=== PATIENT | female | born 1985 | race Caucasian/White ===

== ENCOUNTER 2021-03-08 15:31 | Emergency (ER) | payer MEDICAID, SELFPAY ==
[2021-03-08 15:51] VITALS: BP 103/51; PULSE 68; RESP 15; TEMP 36.5; O2SAT 98
--- NOTE | 2021-03-08 16:27 | ED.GENADUL_ITS ---
Discharge Plan Disposition Patient Disposition: HOME Condition: Stable Discharge Details Clinical Impression: Pain, rectal, Hematochezia Primary Care Provider: Yazan Herrera ED Provider: Gracie Alexandre Home Meds and New Rx's Prescriptions: New hydrocortisone acetate 25 mg suppository 25 mg ND QHS 5 Days Qty: 5 RF: 0 Discharge Instructions Instructions: Rectal Pain (ED) Additional Instructions: Please obtain a stool sample and bring it to lab for follow-up with PCP as directed. Take the suppositories as directed. Follow up with primary care provider in 3-5 days. Return to ED sooner if any worsening abdominal pain, rectal bleeding with clots, dizziness, lightheadedness, fever or concerns. Increase oral fluids. At this time your urine does not show any evidence of urinary tract infection. Referrals: Yazan Herrera [Primary Care Provider] - Discharge Data Discharge Date/Time-TO BE ENTERED AT DEPARTURE: 03/08/21 17:34 Medical Decision Making 35-year-old female since the ER with complaints of rectal pain and pressure, loose stools which has gotten worse over the last couple days. She also reports some urinary frequency and hesitancy she states that she was recently on Cipro for a UTI finished the course approximately 2 weeks ago. She denies any gross blood or dark tarry stools. She does report some soft stools. She has been trying Epson salt baths, hydrocortisone topical cream, lidocaine and Tucks wipes which has helped somewhat. Plan is to get urine sample rule out UTI, and an outpatient stool sample. Guaiac positive. No obvious external or internal hemorrhoid palpated or visualized. Urinalysis shows no evidence of urinary tract infection including leukocyte or nitrite. This time I do feel that this is irritation of the lining of the colon due to soft stools as patient describes. Will send in outpatient stool collection kit and specimen for patient to collect at home and strict follow-up with PCP. Plan is to discharge patient with hydrocortisone rectal suppositories. Differential diagnosis includes but limited to C. difficile, gastritis, internal hemorrhoid, colitis, viral or bacterial infection HPI General Mode of arrival: ambulatory . Date/Time Provider Initiated Documentation: 03/08/21 15:55 . Limitations to Documentation: no limitations . Information obtained by: patient . HPI Narrative: 35-year-old female since the ER with complaints of rectal pain and pressure, loose stools which has gotten worse over the last couple days. She also reports some urinary frequency and hesitancy she states that she was recently on Cipro for a UTI finished the course approximately 2 weeks ago. She denies any gross blood or dark tarry stools. She does report some soft stools. She has been trying Epson salt baths, hydrocortisone topical cream, lidocaine and Tucks wipes which has helped somewhat. 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 HEENT: Denies trauma, headaches, blurry vision, nasal discharge, sore throat, trouble swallowing. Chest: Denies chest pain, palpitations, irregular rhythm, hypertension. Respiratory: Denies Shortness of breath, cough, hemoptysis. GI: Denies abdominal pain, nausea, vomiting. Reports loose stools. Does have a history of constipation due to Suboxone. : Denies dysuria, hematuria, flank pain, reports urinary hesitancy and mild stress incontinence. Neuro: Denies dizziness, blurry vision, weakness, syncope, headache or facial numbness. Hematologic: Denies easy bruising, intolerance to heat or cold, hair loss. [facility] Medical History Asthma Hyperthyroidism Surgical History History of hysterectomy Social History Smoking/Tobacco Use Status: Current every day Tobacco Type: cigarettes Tobacco: How many years used: 15 Smoking risk assessment performed?: Yes Alcohol Intake: never Drug use: Daily Substance use type: marijuana Do you feel safe at home: Yes Do you feel safe in your relationship?: Yes Exam Narrative Exam Narrative: Constitutional: Alert and oriented x3. Appears stated age. Normal body habitus. Head: Normocephalic, no trauma. Eyes: Pupils PERRLA, Red reflex noted, EOM's intact. Eyelids symmetrical without lesions, discharge, or swelling. ENT: Bilateral TM's WNL, External ear normal to inspection, no mastoid TTP, swelling, or erythema, Nasal turbinates WNL, no nasal discharge. Normal dentition, Posterior pharynx WNL, no exudate. Chest: RRR, Normal S1, S2, distal pulses intact. Resp: Lungs scattered expiratory wheezes throughout all kowalski, no rales, or rhonchi. Abdomen: Soft, nondistended nontender to palpation all 4 quadrants. Rectal exam: No visible or palpated external or internal hemorrhoids, positive guaiac stool. Small amount of gross blood on digital rectal exam. Patient did have some tenderness with exam. Musculoskeletal: Normal gait, 5/5 strength to all four extremities. Skin: No suspicious rashes or lesions. Capillary refill less than 2 sec. Neurologic: Cranial nerves II-XII intact. Alert and oriented x 3. DTR's intact. Hematologic/Lymphatic: No ecchymosis, no lymphadenopathy. Course Vital Signs Vital signs: Vital Signs Temperature 36.5 C 03/08/21 15:51 Pulse 68 03/08/21 15:51 Respiratory Rate 15 03/08/21 15:51 Blood Pressure 103/51 L 03/08/21 15:51 Pulse Oximetry 98 03/08/21 15:51 Temperature 36.5 C 03/08/21 15:51 Temperature Source Temporal Artery Scan 03/08/21 15:51 Pulse 68 03/08/21 15:51 Respiratory Rate 15 03/08/21 15:51 Blood Pressure 103/51 L 03/08/21 15:51 Pulse Oximetry 98 03/08/21 15:51 Oxygen Delivery Method Room Air 03/08/21 15:51 Oxygen Flow Rate 0 03/08/21 15:51 Procedures Stool Hemoccult Procedural Steps Taken: stool placed in appropriate test area, developer placed on stool and control areas and controls appropriately positive and negative Hemoccult result: positive
[2021-03-08 16:54] LABS: Bilirubin Negative (Negative); Blood Negative (Negative); Clarity Clear (Clear); Glucose Negative (Negative); Ketones Negative (Negative); Leukocyte Esterase Negative (Negative); Nitrite Negative (Negative); Specific Gravity >= 1.030 (1.005-1.025); Urobilinogen 0.2 EU/dL (Up TO 0.2)
[2021-03-08 17:02] LABS: RBC Negative HPF (0-2)
[2021-03-08 17:03] LABS: Bacteria Moderate HPF (Negative); C & S Indicated? No/Sq. Contamination; Casts Negative LPF (Negative); Crystals Few Amorphous HPF (Negative); Epithelial Cells Many HPF (Negative); Mucus Heavy (Negative); Other Cells Negative (Negative)
[2021-03-08 17:33] VITALS: BP 115/64; PULSE 62; RESP 15; TEMP 36.7; O2SAT 98
== END 2021-03-08 17:34 | disposition home or self-care (01) ==
PROVIDERS: Emergency Provider Registered Nurse Emergency; PCP Nurse Practitioner
DX: K62.89 Other specified diseases of anus and rectum (principal); K92.1 Melena
CPT/HCPCS: 99283; 81003; 81015

== ENCOUNTER 2021-03-10 16:06 | Emergency (ER) | payer MEDICAID, SELFPAY ==
[2021-03-10 16:27] VITALS: BP 111/74; PULSE 16; RESP 16; TEMP 36.7; O2SAT 96
--- NOTE | 2021-03-10 17:07 | W.ED.GENAD ---
Discharge Plan Disposition Patient Disposition: HOME Condition: Good Discharge Details Clinical Impression: Internal bleeding hemorrhoids, Pain, rectal Primary Care Provider: Yazan Herrera ED Provider: Jessica Nunez Discharge Instructions Additional Instructions: take colace, over the counter daily 50-100 mg use preparation H generic suppositories for the next 5 days tylenol and ibuprofen for pain prunes or metameucil daily Discharge Data Discharge Date/Time-TO BE ENTERED AT DEPARTURE: 03/10/21 17:50 Medical Decision Making Patient appears well, she has an obvious fissure with small internal hemorrhoid She is stable for discharge home She is instructed to take [id number] medications as unfortunately her insurance will not cover anything prescription, she is encouraged to take Colace and [id number] hemorrhoid suppositories such Preparation H She is also instructed to use glycerin suppositories as needed and follow-up with her primary care physician Return precautions Patient expressed understanding Differential Diagnosis Differential Diagnosis: GI bleed, hemorrhoid, fissure, abscess Lab Data Lab results reviewed: Yes I reviewed the patient's lab results. HPI This 35-year-old female presents with report of rectal pain for the past several weeks. She states that she has hemorrhoids but she has frequent constipation. She denies abdominal pain, chest pain, shortness of breath, fever, blood in stool. She states she does have a history of hemorrhoids. She has tried ibuprofen for pain but no additional medication. She did not have a prescription prescribed at the her. She denies any additional complaints at this time. General Date/Time Provider Initiated Documentation: 03/10/21 16:15. Related Data Allergies Allergy/AdvReac Type Severity Reaction Status Date / Time No Known Allergies Allergy Unverified 03/10/21 16:30 General Stated Complaint: GenMedical NIC: 4 Review of Systems Narrative: Review of systems obtained times 7 aside from where indicated in HPI [facility] Medical History Asthma Hyperthyroidism Surgical History History of hysterectomy Social History Smoking/Tobacco Use Status: Current every day Tobacco Type: cigarettes Tobacco: How many years used: 15 Smoking risk assessment performed?: Yes Alcohol Intake: never Drug use: Daily Substance use type: marijuana Do you feel safe at home: Yes Do you feel safe in your relationship?: Yes Exam Const General: healthy appearing GI Other: No abdominal tenderness, normal inspection On anoscopy patient has a internal hemorrhoid and a small fissure that are not actively bleeding, no evidence of thrombosis, no evidence of abscess Skin Other: No pallor Neuro General: patient alert and patient oriented x3 Course Vital Signs Vital signs: Vital Signs Temperature 36.7 C 03/10/21 16:27 Pulse 16 L 03/10/21 16:27 Respiratory Rate 16 03/10/21 16:27 Blood Pressure 111/74 03/10/21 16:27 Pulse Oximetry 96 03/10/21 16:27 Temperature 36.7 C 03/10/21 16:27 Pulse 16 L 03/10/21 16:27 Respiratory Rate 16 03/10/21 16:27 Respiratory Effort 03/10/21 16:31 Blood Pressure 111/74 03/10/21 16:27 Blood Pressure Position Sitting 03/10/21 16:27 Pulse Oximetry 96 03/10/21 16:27 Oxygen Delivery Method Room Air 03/10/21 16:27 Oxygen Flow Rate 0 03/10/21 16:27 Pain Level 7 03/10/21 16:27
[2021-03-10 17:49] VITALS: BP 111/74; PULSE 61; RESP 16; O2SAT 96
== END 2021-03-10 17:50 | disposition home or self-care (01) ==
PROVIDERS: Emergency Provider Physician Assistant; PCP Nurse Practitioner
DX: K64.8 Other hemorrhoids (principal)
CPT/HCPCS: 99282; 99283

== ENCOUNTER 2021-03-10 16:48 | Outpatient (REF) | payer MEDICAID, SELFPAY ==
[2021-03-11 20:59] LABS: Campylobacter PCR Negative (Negative); Salmonella PCR Negative (Negative); Shiga Toxin PCR Negative (Negative); Shigella/Enteroinvasive Ecoli Negative (Negative)
== END 2021-03-10 16:49 | disposition home or self-care (01) ==
LOC: LBN 16:48
PROVIDERS: PCP Nurse Practitioner; Visit Provider Registered Nurse Emergency
DX: R19.7 Diarrhea, unspecified (principal); K62.89 Other specified diseases of anus and rectum; K62.5 Hemorrhage of anus and rectum
CPT/HCPCS: 87505; 83630; 87177; 87324

== ENCOUNTER 2022-04-19 21:47 | Emergency (ER) | payer MEDICAID, SELFPAY ==
[2022-04-19 21:55] VITALS: BP 144/103; PULSE 104; RESP 18; TEMP 36.7; O2SAT 100
[2022-04-19 22:01] VITALS: BP 143/97
--- NOTE | 2022-04-19 22:01 | W.ED.GENAD ---
Discharge Plan Disposition Patient Disposition: HOME Condition: Good Discharge Details Clinical Impression: Kidney stone on left side Primary Care Provider: Yazan Herrera ED Provider: Riley Hatfield Home Meds and New Rx's Prescriptions: New cephalexin 500 mg capsule 500 mg PO QID 4 Days Qty: 16 0RF Continued buprenorphine-naloxone 2-0.5 mg Tablet, Sublingual 1 tab SUBLINGUAL Discharge Instructions Instructions: Kidney Stones (ED) Additional Instructions: At this time you have a small 2 mm kidney stone. Thankfully it is right at the very end of its course, and should pass shortly. Please continue to take Tylenol and Motrin as needed for pain. You can take 1000 mg of Tylenol every 6 hours and 800 mg of Motrin every 6 hours. There is a very small amount of bacteria noted in your urine, however it does not appear to be an infection yet. Out of an abundance of precaution please take the antibiotic as directed to prevent infection as you passed the stone. The prescription has been sent to your pharmacy. Please use a urinary strainer to collect the stone which can then be brought to your family doctor for further analysis. If you notice any worsening of your symptoms, or any new symptoms such as vomiting, diarrhea, fever, chills, shortness of breath, chest pain, numbness, weakness, or fainting , please return immediately to the emergency department for reevaluation. Please follow up with your primary care provider as soon as possible for reassessment and reevaluation. As always, it was a pleasure participating in your medical care today. Medical Decision Making <Matias Casillas MD - Last Filed: 04/19/22 22:08> 36-year-old with recurrent UTIs. Given the flank pain the sudden onset of the discomfort believe it is important to rule out kidney stone. CT scan has been ordered. Patient will be treated Zofran IV fluids as well as Toradol. <Riley Hatfield DO - Last Filed: 04/20/22 01:45> 36-year-old with recurrent UTIs. Given the flank pain the sudden onset of the discomfort believe it is important to rule out kidney stone. CT scan has been ordered. Patient will be treated Zofran IV fluids as well as Toradol. Dr. Hatfield's documentation: Case is signed out to me by Dr. Casillas. Please refer to his HPI, physical exam, assessment and plan. At time of signout we are awaiting CT scan results and repeat urinalysis as the first urinalysis had been notably dirty. CT scan result have returned and demonstrates evidence of small 2 mm calculus. Minimal hydroureteronephrosis. Patient's pain is well controlled. If the patient's urinalysis returns on repeat UA and shows no evidence of infection then the patient will be stable for discharge and close follow-up. 1:44 AM Urinalysis has returned and shows negative leuk esterase, negative nitrites. This does not represent evidence of infection. She does have slightly elevated WBCs, but it is in the presence of RBCs. Out of an abundance of precaution we will start the patient on Keflex to prevent any infection for the last small amount of time while she is passing the stone. Recommend close follow-up with Dr. Noel. Pain is completely resolved on reassessment the patient feels well. I have extensively reviewed the treatment plan and discharge instructions with the patient. I have addressed all patient concerns at this time. The patient was made aware of what symptoms to monitor for that would warrant a return to the emergency department. Discussed the plan with the patient, they demonstrate verbal understanding and agreement with our assessment and plan at this time. The documentation in this chart was dictated using [employer] dictation software. Please excuse any dictation errors. FINDINGS: Lungs: Left lung base subpleural 3 mm nodule, image 5. Liver: The liver measures 18.7 cm in craniocaudal dimension. Gallbladder and bile ducts: No calcified stones. No ductal dilation. Pancreas: No ductal dilation. Spleen: No splenomegaly. Adrenal glands: Normal. No mass. Kidneys and ureters: Nonobstructing 2 mm right renal calculus. Mild left-sided hydroureteronephrosis. 2 mm calculus at the left ureterovesical junction projecting on the luminal aspect of the bladder. Stomach and bowel: No obstruction. No mucosal thickening. Appendix: The appendix is not identified. Intraperitoneal space: No free air. No significant fluid collection. Vasculature: Bilateral pelvic phlebolith. Lymph nodes: No enlarged lymph nodes. Urinary bladder: See Kidneys and ureters finding. Reproductive: The uterus is not identified. Bones/joints: Unremarkable. No acute fracture Soft tissues: Unremarkable. IMPRESSION: Mild left-sided hydroureteronephrosis. 2 mm calculus at the left ureterovesical junction projecting on the luminal aspect of the urinary bladder. Nonobstructing 2 mm right renal calculus. Thank you for allowing us to participate in the care of your patient. Dictated and Authenticated by: Lior Hernandez MD 04/19/2022 10:52 PM Eastern Time ([place] & [place]) HPI <Matias Casillas MD - Last Filed: 04/19/22 22:08> General Date/Time Provider Initiated Documentation: 04/19/22 21:58. HPI Narrative: 36-year-old lady presents to the emergency department with a chief complaint of left lower quadrant pain that radiates to . This pain started last evening. Since progressively getting worse recently. Associated with some nausea and vomiting. No fevers. But she does endorse some chills. She also states that she has urinary frequency. No urgency.. She feels her chest pain glass. No alleviating factors no exacerbating factors Related Data Home Medications Medication Instructions Recorded Confirmed buprenorphine 2 mg-naloxone 0.5 mg 1 tab sublingual 04/19/22 sublingual tablet cephalexin 500 mg capsule 500 mg PO QID 4 days #16 caps 04/20/22 Previous Rx's Medication Instructions Recorded cephalexin 500 mg capsule 500 mg PO QID 4 days #16 caps 04/20/22 Allergies Allergy/AdvReac Type Severity Reaction Status Date / Time No Known Allergies Allergy Unverified 04/19/22 21:58 General Stated Complaint: Urinary NIC: 3 Review of Systems <Matias Casillas MD - Last Filed: 04/19/22 22:08> Narrative: Constitutional positive for fatigue. No malaise. HEENT. No sore throat. Cardiovascular no chest pressure. No palpitations no lightheadedness Respiratory sno cough no sob GI positive nausea and vomiting. pos constiption since this morning see hpi MSK see HPI no myalgias or arthralgias Skin no rashes Neuro no headache no paresthesias Psych negative Endocrine negative hematological negative PFSH <Matias Casillas MD - Last Filed: 04/19/22 22:08> All Active Problems (Updated 04/20/22 @ 00:01 by JACQUES HACKETT) Pain, rectal (Acute) Hematochezia (Acute) Internal bleeding hemorrhoids (Acute) Medical History Asthma Hyperthyroidism Surgical History History of hysterectomy Social History Smoking/Tobacco Use Status: Current every day Tobacco Type: cigarettes Tobacco: How many years used: 15 Smoking risk assessment performed?: Yes Alcohol Intake: never Drug use: Daily Substance use type: marijuana Do you feel safe at home: Yes Do you feel safe in your relationship?: Yes Exam <Matias Casillas MD - Last Filed: 04/19/22 22:08> Narrative Exam Narrative: Awake alert [place] x3 mild discomfort, cooperative PERRLA EOMI MMM anicteric Supple neck chest Clear to auscultation bilaterally Regular rhythm and rate no murmurs Abdomen soft nondistended nontender mild discomfort left lower quadrant Back left-sided CVAT Skin no rashes Neuro grossly intact Extremities no edema Psych normal Course <Matias Casillas MD - Last Filed: 04/19/22 22:08> Vital Signs Vital signs: Vital Signs Temperature 36.7 C 04/19/22 21:55 Pulse 104 H 04/19/22 21:55 Respiratory Rate 18 04/19/22 21:55 Blood Pressure 144/103 H 04/19/22 21:55 Pulse Oximetry 100 04/19/22 21:55 Temperature 36.7 C 04/19/22 21:55 Temperature Source Oral 04/19/22 21:55 Pulse 104 H 04/19/22 21:55 Respiratory Rate 18 04/19/22 21:55 Respiratory Effort Non-Labored 04/19/22 21:59 Blood Pressure 143/97 H 04/19/22 22:01 Pulse Oximetry 100 04/19/22 21:55 Pain Level 9 04/19/22 21:55 Sign Out <Matias Casillas MD - Last Filed: 04/19/22 22:08> Sign Out Data: Sign Out Comment: 36-year-old with symptoms consistent with either UTI versus distal stone. CAT scan confirms a distal left stone. Unfortunately first UA that she gave is clean-catch. At signout was pending is a repeat UA to make sure. Urine is not infected. Patient received Toradol IM as well as p.o. Zofran feeling great deal better. Last updated by Matias Casillas MD at 04/19/22 23:32
--- NOTE | 2022-04-19 22:15 | DI.CT_ITS ---
Exam(s) CT RENAL COLIC WO EXAM: CT RENAL COLIC WO CLINICAL HISTORY: flank pain. TECHNIQUE: Imaging Protocol: Axial computed tomography images with coronal and sagittal reformatted images were created and reviewed. COMPARISON: No exams were available for comparison FINDINGS: Lack of IV contrast does limit evaluation of the abdominal pelvic organs. ABDOMEN: Lung Bases: Normal where visualized. Liver: Normal density. No measurable mass. Gallbladder and biliary tract: No radiodense calculus or biliary ductal dilation. Pancreas: Normal density, no abnormal calcifications or inflammatory process. Spleen: Normal. Kidneys: Normal size, contour and axis.There is a 3 mm nonobstructing stone in the midpole of the rig ht kidney. There is a 3 mm stone at the left UVJ projecting into the urinary bladder. There is mild left hydronephrosis. Adrenal glands: No mass is seen. Lymph nodes: Within normal limits. Abdominal Aorta: Abdominal portion non-dilated. PELVIS: Bladder:Symmetric distention, no gross wall thickening. Bowel: No obstruction or bowel wall thickening. No evidence of appendicitis. Peritoneal cavity: No ascites, collection or mesenteric inflammatory response. No free air. Reproductive organs: Within normal limits. Bones: Within normal limits. Soft Tissues: Within normal limits. IMPRESSION: 3 mm stone at the left UVJ projecting into the bladder causing mild hydronephrosis. RADIATION DOSE DELIVERED: 709.87mGy.cm Total DLP DATA REPOSITORY: All CT scans at this facility are submitted to the National Radiology Data Registry (NRDR) Dose Index Registry (DIR) with the [employer] (ACR). RADIATION OPTIMIZATION: All CT scans at this facility use at least one of these dose optimization te chniques: automated exposure control; mA and/or kV adjustment per patient size (includes targeted exa ms where dose is matched to clinical indication); or iterative reconstruction.
[2022-04-19 22:21] LABS: Clarity Clear (Clear)
[2022-04-19 22:39] LABS: Anion Gap 12.9 mmol/L (3-11); BUN 14 mg/dL (7-18); CO2 25.1 mmol/L (21.0-32.0); Calcium 9.5 mg/dL (8.5-10.1); Chloride 107 mmol/L (98-107); Glucose 103 mg/dL (74-106); Potassium 3.7 mmol/L (3.5-5.1); Sodium 145 mmol/L (136-145)
--- NOTE | 2022-04-19 22:40 | NUR.NOTE ---
Nursing Note: unable to get IV; Dr. Casillas notfied; - verbal order received to give medications IM; read back and verified done.
[2022-04-19 22:42] LABS: Bilirubin Color Interference (Negative); Blood Color Interference (Negative); Glucose Color Interference mg/dL (Negative); Ketones Color Interference mg/dL (Negative); Leukocyte Esterase Color Interference (Negative); Nitrite Color Interference (Negative); Urobilinogen Color Interference EU/dL (Up TO 0.2)
[2022-04-19 22:45] LABS: Specific Gravity 1.025 (1.005-1.025)
[2022-04-19 22:48] LABS: Abs Immature Grans 0.04 10^3/uL (0.0-0.06); Absolute Basophil Count 0.11 10^3/uL (0.0-0.2); Absolute Eosinophil Count 0.29 10^3/uL (0.0-0.7); Absolute Lymphocyte Count 4.23 10^3/uL (1.2-3.4); Absolute Monocyte Count 0.63 10^3/uL (0.1-0.8); Eosinophils % 2.5; HCT 40.7 % (36.0-46.0); HGB 13.7 g/dL (11.2-15.7); Immature Grans % 0.3; Lymphocytes % 36.9; MCH 30.4 pg (27.0-33.0); MCHC 33.7 % (32.0-36.0); MCV 90 fL (80-95); MPV 11.1 fL (8.0-11.0); Monocytes % 5.5; Neutrophils % 53.8; Platelet Count 280 10^3/uL (130-400); RBC 4.51 10^6/uL (3.93-5.22); RDW 11.9 % (11.7-14.6); RDW-SD 39.6 fL; WBC 11.45 10^3/uL (4.4-10.8)
[2022-04-19 22:49] LABS: Bacteria Few HPF (Negative); C & S Indicated? No/Sq. Contamination; Casts Negative LPF (Negative); Crystals Negative HPF (Negative); Epithelial Cells Moderate HPF (Negative); Mucus Negative (Negative); Other Cells Negative (Negative)
[2022-04-19] MEDS: Ondansetron 4 MG/2 ML VIAL IVP (22:51)
[2022-04-19] MEDS: Ketorolac 15 MG/ML VIAL IVP (22:51)
[2022-04-19 22:52] LABS: Absolute Neutrophil Count 6.16 10^3/uL (1.2-6.7)
--- NOTE | 2022-04-19 22:52 | DI.VRAD_ITS ---
PROCEDURE INFORMATION: Exam: CT Abdomen And Pelvis Without Contrast Exam date and time: 04/19/2022 10:31 PM Age: 36 years old Clinical indication: Other: Flank pain TECHNIQUE: Imaging protocol: Computed tomography of the abdomen and pelvis without contrast. COMPARISON: No relevant prior studies available. FINDINGS: Lungs: Left lung base subpleural 3 mm nodule, image 5. Liver: The liver measures 18.7 cm in craniocaudal dimension. Gallbladder and bile ducts: No calcified stones. No ductal dilation. Pancreas: No ductal dilation. Spleen: No splenomegaly. Adrenal glands: Normal. No mass. Kidneys and ureters: Nonobstructing 2 mm right renal calculus. Mild left-sided hydroureteronephrosis. 2 mm calculus at the left ureterovesical junction projecting on the luminal aspect of the bladder. Stomach and bowel: No obstruction. No mucosal thickening. Appendix: The appendix is not identified. Intraperitoneal space: No free air. No significant fluid collection. Vasculature: Bilateral pelvic phlebolith. Lymph nodes: No enlarged lymph nodes. Urinary bladder: See Kidneys and ureters finding. Reproductive: The uterus is not identified. Bones/joints: Unremarkable. No acute fracture. Soft tissues: Unremarkable. IMPRESSION: Mild left-sided hydroureteronephrosis. 2 mm calculus at the left ureterovesical junction projecting on the luminal aspect of the urinary bladder. Nonobstructing 2 mm right renal calculus. Dictated and Authenticated by: Lior Hernandez MD. Ordering:ANGÉLICA Salcedo MD
[2022-04-20 00:33] VITALS: BP 97/50; PULSE 75; RESP 16; O2SAT 99
[2022-04-20 00:45] LABS: Clarity Sl Cloudy (Clear)
[2022-04-20 01:02] LABS: Specific Gravity 1.018 (1.005-1.025)
[2022-04-20 01:06] LABS: Bacteria Rare HPF (Negative); C & S Indicated? Yes; Crystals Negative HPF (Negative); Epithelial Cells Rare HPF (Negative); Mucus Negative (Negative)
[2022-04-20] MEDS: Cephalexin 500 MG CAP, 4 CAPS/BTL PO (01:37)
== END 2022-04-20 01:37 | disposition home or self-care (01) ==
LOC: ER 04-20 01:37
PROVIDERS: Emergency Medicine; Emergency Provider Student in an Organized Health Care Education/Training Program; PCP Nurse Practitioner
DX: N20.0 Calculus of kidney (principal)
CPT/HCPCS: 80048; 81025; 96374; 96375; 99284; 74176; 81003; 81015; 85025; 87086; J1885; J2405

== ENCOUNTER 2022-11-03 11:26 | Emergency (ER) | payer MEDICAID, SELFPAY ==
[2022-11-03 11:36] VITALS: BP 118/54; PULSE 73; RESP 18; TEMP 37; O2SAT 97
--- NOTE | 2022-11-03 12:45 | DI.RAD_ITS ---
Exam(s) XR CHEST 2V PA LATERAL EXAM: XR CHEST 2V PA LATERAL CLINICAL HISTORY: cough fever TECHNIQUE: 2D digital imaging was performed of the chest. Two images were obtained. PA and lateral views were obtained. COMPARISON: No exams were available for comparison FINDINGS: MEDIASTINUM: Normal. HEART: Normal. PULMONARY VASCULATURE: Normal. LUNGS: Clear. PLEURAL SPACE: No pleural effusion or pneumothorax. BONE:Within normal limits for the patient's age. OTHER FINDINGS:Normal. IMPRESSION: No acute pulmonary findings. DATA REPOSITORY: RADIATION DOSE DELIVERED:
--- NOTE | 2022-11-03 12:45 | DI.CT_ITS ---
Exam(s) CT ABDOMEN PELVIS WO EXAM: CT ABDOMEN PELVIS WO CLINICAL HISTORY: llq pain hx of stone. TECHNIQUE: Imaging Protocol: Axial computed tomography images with coronal and sagittal reformatted images were created and reviewed. COMPARISON: CT CT RENAL COLIC WO from 04/19/2022 FINDINGS: ABDOMEN: Lung Bases: Normal where visualized. Liver: Normal density. No measurable mass. Gallbladder and biliary tract: No radiodense calculus or biliary ductal dilation. Pancreas: Normal density, no abnormal calcifications or inflammatory process. Spleen: Normal. Kidneys: Normal size, contour and axis.There is right nephrolithiasis. There is no hydronephrosis. No masses seen. Adrenal glands: No mass is seen. Lymph nodes: Within normal limits. Abdominal Aorta: Abdominal portion non-dilated. PELVIS: Bladder:Incompletely distended but grossly unremarkable. Bowel: No obstruction or bowel wall thickening. No evidence of appendicitis. Peritoneal cavity: No ascites, collection or mesenteric inflammatory response. No free air. Reproductive organs: Status post hysterectomy. Bones: Within normal limits. Soft Tissues: Within normal limits. IMPRESSION: 1. Right nephrolithiasis. No hydronephrosis. 2. No acute abdominal or pelvic process. RADIATION DOSE DELIVERED: 972.04mGy.cm Total DLP DATA REPOSITORY: All CT scans at this facility are submitted to the National Radiology Data Registry (NRDR) Dose Index Registry (DIR) with the [employer] (ACR). RADIATION OPTIMIZATION: All CT scans at this facility use at least one of these dose optimization te chniques: automated exposure control; mA and/or kV adjustment per patient size (includes targeted exa ms where dose is matched to clinical indication); or iterative reconstruction.
[2022-11-03 13:01] LABS: Bilirubin Negative (Negative); Blood Negative (Negative); Clarity Clear (Clear); Glucose Negative (Negative); Ketones 15 mg/dL (Negative); Leukocyte Esterase Small (Negative); Nitrite Positive (Negative); Specific Gravity >= 1.030 (1.005-1.025); Urobilinogen 0.2 EU/dL (Up TO 0.2); pH 6.5 (5-8)
[2022-11-03 13:08] LABS: Bacteria Moderate HPF (Negative); C & S Indicated? Yes; Casts Negative LPF (Negative); Crystals Negative HPF (Negative); Epithelial Cells Few HPF (Negative); Mucus Heavy (Negative); RBC Negative HPF (0-2)
--- NOTE | 2022-11-03 13:54 | DI.VRAD_ITS ---
PROCEDURE INFORMATION: Exam: XR Chest Exam date and time: 11/03/2022 1:23 PM Age: 37 years old Clinical indication: Other: Cough fever TECHNIQUE: Imaging protocol: Radiologic exam of the chest. Views: 2 views. COMPARISON: CT ABDOMEN PELVIS WO 10/05/2022 13:20 FINDINGS: Lungs: Unremarkable. No consolidation. Pleural spaces: Unremarkable. No pleural effusion. No pneumothorax. Heart/Mediastinum: Unremarkable. No cardiomegaly. Bones/joints: Unremarkable for patient's age. IMPRESSION: No acute cardiopulmonary findings. Dictated and Authenticated by: Coby Hunt MD. Ordering:JOSE Lopez MD
--- NOTE | 2022-11-03 14:12 | DI.VRAD_ITS ---
PROCEDURE INFORMATION: Exam: CT Abdomen And Pelvis Without Contrast Exam date and time: 11/03/2022 1:20 PM Age: 37 years old Clinical indication: Other: Llq pain HX of stone TECHNIQUE: Imaging protocol: Computed tomography of the abdomen and pelvis without contrast. COMPARISON: CT RENAL COLIC WO 19/04/2022 22:31 FINDINGS: Liver: Hepatic steatosis. Gallbladder and bile ducts: Normal. No calcified stones. No ductal dilation. Pancreas: Normal. No ductal dilation. Spleen: Normal. No splenomegaly. Adrenal glands: Normal. No mass. Kidneys and ureters: 0.3 cm right renal calculus. No hydronephrosis. Stomach and bowel: Unremarkable. No obstruction. No mucosal thickening. Appendix: The appendix is not identified. Intraperitoneal space: Unremarkable. No free air. No significant fluid collection. Vasculature: Unremarkable. No abdominal aortic aneurysm. Lymph nodes: Unremarkable. No enlarged lymph nodes. Urinary bladder: Decompressed urinary bladder. Reproductive: Hysterectomy. Bones/joints: Unremarkable. No acute fracture. Soft tissues: Umbilical hernia. IMPRESSION: 1. No acute findings. 2. Right nephrolithiasis. No hydronephrosis. Dictated and Authenticated by: Coby Hunt MD. Ordering:JOSE Lopez MD
[2022-11-03 14:48] VITALS: BP 108/72; TEMP 36.6; O2SAT 81
[2022-11-03 15:01] VITALS: O2SAT 94
--- NOTE | 2022-11-03 15:10 | ED.GENADUL_ITS ---
Discharge Plan Disposition Patient Disposition: Home Condition: Stable Discharge Details Clinical Impression: UTI (urinary tract infection), Bronchitis Primary Care Provider: Yazan Herrera ED Provider: Jessica Nunez Home Meds and New Rx's Prescriptions: New prednisone 20 mg tablet 40 mg PO DAILY Qty: 10 0RF cefdinir 300 mg capsule 300 mg PO BID Qty: 14 0RF Continued buprenorphine-naloxone 2-0.5 mg Tablet, Sublingual 1 tab SUBLINGUAL Discharge Instructions Instructions: Urinary Tract Infection in Women (ED), Acute Bronchitis (ED) Additional Instructions: Take the antibiotic as prescribed Steroid as, prescribed until completed Use your inhaler, 2 puffs every 4-6 hours Ibuprofen and Tylenol as needed for pain Referrals: Yazan Herrera [Primary Care Provider] - Discharge Data Discharge Date/Time-TO BE ENTERED AT DEPARTURE: 11/03/22 15:43 Medical Decision Making This 37-year-old female with persistent ongoing abdominal pain and acute upper respiratory symptoms for the past week Patient has a chest x-ray does not show acute abnormality but does have wheezes without respiratory distress, placed on prednisone and given albuterol inhaler No hypoxia CT was ordered as she does have evidence of a urinary tract infection and there is no evidence of obstructive uropathy per radiology interpretation and my review Will treat for urinary tract infection Afebrile and nontoxic in appearance Return precautions discussed and patient expressed understanding Will follow up with urology in the outpatient setting Medical Records Medical records reviewed: Yes I reviewed the patient's medical records. Lab Data Lab results reviewed: Yes I reviewed the patient's lab results. ECG Data Prior ECG tracings: available for review Sign Out No HPI General Date/Time Provider Initiated Documentation: 11/03/22 11:47 . HPI Narrative: This 37-year-old female presents with report of left lower quadrant pain, nausea, and diaphoresis with cough for 1 month, burning with urination and some intermittent incontinence, this is been going on for 3 months per patient.. States that she is been sick for the past week as well with upper respiratory symptoms and wheezing. She does smoke tobacco. Denies fever or chills. denies any chance of . Related Data Home Medications Medication Instructions Recorded Confirmed buprenorphine 2 mg-naloxone 0.5 mg 1 tab sublingual 04/19/22 sublingual tablet cefdinir 300 mg capsule 300 mg PO BID #14 caps 11/03/22 prednisone 20 mg tablet 40 mg PO DAILY #10 tabs 11/03/22 Previous Rx's Medication Instructions Recorded cefdinir 300 mg capsule 300 mg PO BID #14 caps 11/03/22 prednisone 20 mg tablet 40 mg PO DAILY #10 tabs 11/03/22 Allergies Allergy/AdvReac Type Severity Reaction Status Date / Time No Known Allergies Allergy Unverified 11/03/22 11:40 General Stated Complaint: Abd Prob NIC: 3 Review of Systems All systems reviewed & are unremarkable except as noted in HPI and below PFSH All Active Problems (Updated 11/03/22 @ 15:16 by BURT Lr) Pain, rectal (Acute) Hematochezia (Acute) Internal bleeding hemorrhoids (Acute) UTI (urinary tract infection) (Acute) Bronchitis (Acute) Medical History Asthma Hyperthyroidism Surgical History History of hysterectomy Social History Smoking/Tobacco Use Status: Current every day Tobacco Type: cigarettes Tobacco: How many years used: 15 Smoking risk assessment performed?: Yes Alcohol Intake: never Drug use: Daily Substance use type: marijuana Do you feel safe at home: Yes Do you feel safe in your relationship?: Yes Exam Const General: cooperative, comfortable and no acute distress HENMT Head: normal to inspection Mouth: oral mucosae normal Eyes Sclera: sclerae normal Resp Effort & Inspection: normal respiratory effort Other: wheezes scant scattered, no respiratory distress Cardio Rate: regular rate Rhythm: regular rhythm GI Inspection: normal to inspection Auscultation: normal bowel sounds Other: mild left lower quadrant tenderness without rebound or guarding Skin General skin exam: no rashes or lesions noted Neuro General: patient alert and patient oriented x3 Course Vital Signs Vital signs: Vital Signs Temperature 37.0 C 11/03/22 11:36 Pulse 73 11/03/22 11:36 Respiratory Rate 18 11/03/22 11:36 Blood Pressure 118/54 L 11/03/22 11:36 Pulse Oximetry 97 11/03/22 11:36 Temperature 36.6 C 11/03/22 14:48 Temperature Source Oral 11/03/22 14:48 Pulse 73 11/03/22 11:36 Respiratory Rate 18 11/03/22 11:36 Respiratory Effort Non-Labored 11/03/22 11:42 Blood Pressure 108/72 11/03/22 14:48 Blood Pressure Position Sitting 11/03/22 11:36 Pulse Oximetry 94 11/03/22 15:01 Oxygen Delivery Method Room Air 11/03/22 15:01 Oxygen Flow Rate 0 11/03/22 15:01 Pain Level 5 11/03/22 14:48 Lab/Test Results Lab/Test Results: 11/03/22 12:55 Urine - Reflex from Ua Urine Culture - Pending Laboratory Tests Range/Units 11/03/22 12:55 Urine Color (Yellow) Yellow Urine Clarity (Clear) Clear Urine pH (5-8) 6.5 Ur Specific [place] (1.005-1.025) >= 1.030 H Urine Protein (Negative) mg/dL 30 H Urine Ketones (Negative) mg/dL 15 H Urine Blood (Negative) Negative Urine Nitrite (Negative) Positive H Urine Bilirubin (Negative) Negative Urine Urobilinogen (Up TO 0.2) EU/dL 0.2 Ur Leukocyte Esterase (Negative) Small H Urine RBC (0-2) HPF Negative Urine WBC (0-5) HPF 10-20 H Ur Epithelial Cells (Negative) HPF Few Urine Crystals (Negative) HPF Negative Urine Bacteria (Negative) HPF Moderate Urine Casts (Negative) LPF Negative Urine Mucus (Negative) Heavy Ur Culture Indicated? Yes Urine Glucose (Negative) mg/dL Negative
[2022-11-03] MEDS: Albuterol HFA 8 GM 60 PUFF INH IH (15:41)
== END 2022-11-03 15:43 | disposition home or self-care (01) ==
PROVIDERS: Emergency Provider Physician Assistant; PCP Nurse Practitioner
DX: N39.0 Urinary tract infection, site not specified (principal); J45.909 Unspecified asthma, uncomplicated; F17.210 Nicotine dependence, cigarettes, uncomplicated
CPT/HCPCS: 87077; 99284; 71046; 74176; 81003; 81015; 87086; 87186

== ENCOUNTER 2024-09-20 01:20 | Outpatient (CLI) | payer MEDICAID, SELFPAY ==
--- NOTE | 2024-09-20 14:30 | DI.US_ITS ---
Exam(s) US NEEDLE LOCAL BREAST WO RAD EXAM: US NEEDLE LOCAL BREAST WO RAD CLINICAL HISTORY: RT BREAST MASS, ULTRASOUND GUIDED BX. RIGHT BREAST. TECHNIQUE: Ultrasound guidance was provided by the automation technologist during core biopsy of a 7 o'clock position nodule in the right breast. COMPARISON: [facility] Mammography Diagnostic from 02/10/2024 US US Breast Rt Unilateral Lmtd from 02/10/2024 US US Breast Rt Unilateral Lmtd from 09/14/2024 Prior breast imaging has been performed at [facility] FINDINGS: Images and multiple cine acquisitions reveal the biopsy device to be in the targeted nodule during ti ssue acquisition. Final cine acquisition reveals placement of the marker device post tissue acquisition. IMPRESSION: Successful Ultrasound-guided Breast Biopsy. Images reveal the core biopsy device to be within the targeted nodule at the 7 o'clock position.
--- NOTE | 2024-09-20 14:54 | BREAST_PTH ---
PATIENT: Ambar Barakat LOC: [facility] U#:[id number] AGE/SX: 39/F ROOM: RE09/20/[address]: Kirt Parrish MD : 1985 BED: DIS: 09/20/2024 SPEC #: [id number] RECD: 09/20/24 18:20 STATUS: RUPINDER REQ #: [id number] SHIRA: 09/20/24 14:[address]: Kirt Parrish DEPT: Surgical Specimen RECD BY: Jessica Jean ENTERED: 09/20/24 18:21 SP TYPE: Breast OTHR DR: Ladarius Herrera Tissues: 1 - BREAST BX NEEDLE Procedures: GROSS AND MICRO LEVEL 4 Comments: [id number]
--- NOTE | 2024-09-20 18:37 | OPPNE_ITS ---
Date of service: 09/20/24 Time of Service: 14:55 Procedure Note Date of procedure: 09/20/24 Procedure: Ultrasound-guided core needle biopsy of right breast Surgeon/Proceduralist/Physician: Kirt Parrish Procedure Diagnosis: Right breast abnormality seen on mammogram and ultrasound Procedure Indications: Ambar is a 39-year-old woman with a suspicious lesion seen on the right hoang ast during mammogram. This was confirmed with ultrasound. Tissue diagnosis was recommended with biopsy Procedure Description: I met Ambar and her in the ultrasound suite, and reviewed the plan for a biopsy of the right breast. She confirmed that the right side was the correct side. Next, I explained the nature of the procedure, what to expect in terms of the risks and the recovery. She was able to provide informed consent. Next, a limited ultrasound of the right breast was performed identifying a lesion seen in the central portion of the lower quadrants. It is just slightly towards the lower outer quadrant. Lesion was clearly visible on ultrasound. Next, I prepped the area adjacent to the ultrasound probe, and established a generous field block using local anesthetic, and along the trajectory of the planned biopsy site. Next, I made a small skin incision using an 11 blade scalpel. Through this percutaneous site, I introduced a 22 mm Bard core needle biopsy device. With the assistance of real-time ultrasound guidance, I advanced up to the edge of the lesion. I took several passes using the biopsy device en suring adequate specimens were obtained. These were preserved in formalin. A radiopaque marker was placed in the area of the biopsies. Ambar tolerated the procedure well. Band-Aid was applied to the access site, and postprocedure instructions were provided.
== END 2024-09-20 01:40 ==
LOC: DI 01:21
PROVIDERS: PCP Nurse Practitioner; Visit Provider Surgery
DX: D24.1 Benign neoplasm of right breast (principal)
CPT/HCPCS: 19083; 88305; 76942

== ENCOUNTER 2024-10-14 02:24 | Outpatient (CLI) | payer MEDICAID, SELFPAY ==
--- NOTE | 2024-10-14 | DI.US_ITS ---
Exam(s) US RENAL PELVIC TRANSVAGINAL EXAM: US RENAL PELVIC TRANSVAGINAL CLINICAL HISTORY: LLQ PAIN,R10.32. TECHNIQUE: Kirby scale, color and spectral Doppler were used. COMPARISON: CT CT ABDOMEN PELVIS WO from 11/03/2022 US US Breast Rt Unilateral Lmtd from 09/14/2024 FINDINGS: Right kidney: 11.8cm Echogenicity: Normal Hydronephrosis: No Cyst or mass: No Nephrolithiasis: 4 millimeter stone upper to mid pole. Left kidney: 12.2cm Echogenicity: Normal Hydronephrosis: No Cyst or mass: No Nephrolithiasis: No Bladder:Normal. Both ureteral jets were visualized. Prevoid vol:34 cc Postvoid vol:0 cc Pelvic ultrasound: Status post hysterectomy. Ovaries normal in size and appearance. No suspicious mass. No evidence of torsion. No free fluid. IMPRESSION: 4 millimeter stone upper to mid pole of the right kidney. No evidence of hydronephrosis. Status post hysterectomy. Normal appearing ovaries. DATA REPOSITORY:
--- NOTE | 2024-10-14 | DI.US_ITS ---
Exam(s) US THYROID EXAM: US THYROID CLINICAL HISTORY: HYPOTHYROIDISM,E03.9. TECHNIQUE: Ultrasound thyroid performed using standard protocol. COMPARISON: None FINDINGS: Both thyroid lobes are prominent-enlarged and exhibit uniformly heterogeneous echotexture and entire gland is somewhat hyperemic. RIGHT THYROID LOBE: Measures 3.1 cm AP x 3.1 cm wide x 6.7 cm craniocaudal No discernible nodules ISTHMUS: Thickened, measuring 7 mm thick and heterogeneous, similar to the remainder of the gland. LEFT THYROID LOBE: Measures 2.3 cm AP x 2.4 wide x 0.8 cm craniocaudal No discernible nodules. In the most inferior aspect of the left lobe there is upon the images a 1.0 x 1.2 cm finding which upon real-time imaging has the appearance more of just part of the heterogeneou s gland tissue than an actual separate nodule. We performed a cine loop through this region. LYMPH NODES: There is no significant adenopathy. IMPRESSION: 1. Enlarged and uniformly heterogeneous thyroid gland which is also hyperemic No truly discernible nodules evident. 2. Correlation with past medical history recommended. 3. There is no significant lymphadenopathy. DATA REPOSITORY:
== END 2024-10-14 02:44 ==
LOC: DI 02:24
PROVIDERS: PCP Nurse Practitioner; Visit Provider Physician Assistant
DX: E03.9 Hypothyroidism, unspecified (principal)
CPT/HCPCS: 76770; 76536; 76830; 76856

== ENCOUNTER 2024-12-24 15:45 | Emergency (ER) | payer MEDICAID, SELFPAY ==
[2024-12-24 15:47] VITALS: BP 116/65; PULSE 107; RESP 14; TEMP 37; O2SAT 93
--- NOTE | 2024-12-24 16:14 | DI.RAD_ITS ---
Exam(s) XR CHEST 2V PA LATERAL EXAM: XR CHEST 2V PA LATERAL CLINICAL HISTORY: Cough. TECHNIQUE: 2D digital imaging was performed. COMPARISON: CR,XR XR CHEST 2V PA LATERAL from 11/03/[address] ABDOMEN PELVIS WO from 11/03/2022 FINDINGS: 2 views: Heart size is normal. The mediastinum is not widened. There are mild increased markings in both lower lobes, slightly more so on the right side. There are no pleural effusions. IMPRESSION: Right lower lobe infiltrate. Possible also mild left lower lobe infiltrate. There are no pleural ef fusions. DATA REPOSITORY: RADIATION DOSE DELIVERED:
--- NOTE | 2024-12-24 16:27 | ED.GENADUL_ITS ---
Discharge Plan Disposition Patient Disposition: Home Condition: Stable Discharge Details Clinical Impression: Pneumonia Primary Care Provider: Viktoriya Vasquez ED Provider: Gracie Alexandre Home Meds and New Rx's Prescriptions: New doxycycline hyclate 100 mg capsule 100 mg PO BID 10 Days Qty: 20 0RF Rx Instructions: Take 1 capsule by mouth twice daily for the next 10 days No Action levothyroxine 1 tab PO DAILY Patient Comments: unknown dose Discharge Instructions Instructions: Pneumonia, Adult ED Additional Instructions: Negative for COVID flu and RSV it does appear today that you have bilateral pneumonia on the chest x-ray. Please use your albuterol inhaler as previously prescribed. 1 or 2 puffs every 4-6 hours as needed. Take the antibiotic with yogurt or a probiotic as directed. Please take Tylenol or Ibuprofen with food every 4-6 hours as needed for pain and swelling. Increase oral fluids. Follow up with primary care provider in 3-5 days. Return to ED sooner if any worsening short of breath, fever not relieved by Tylenol or ibuprofen, or concerns. Thank you for allowing us to care for you today. Stand Alone Forms: Work Release Referrals: Yazan Herrera [[facility] REGISTERED NURSE] - 1 week Discharge Data Discharge Date/Time-TO BE ENTERED AT DEPARTURE: 12/24/24 17:20 HPI General Mode of arrival: ambulatory . Date/Time Provider Initiated Documentation: 12/24/24 15:57 . Limitations to Documentation: no limitations . Information obtained by: patient, RN notes reviewed and old records reviewed . HPI Narrative: 39-year-old female presents to the ER with a chief complaint of URI type symptoms for the last 3 days. Productive cough, fever up to Tmax 103 per patient report. Does have a history of asthma. Has been taking Tylenol ibuprofen. She does have some rales noted in the right lower lobe on auscultation. Past medical history includes hypothyroidism asthma and she does have a history of a hysterectomy. Otherwise physical exam is unremarkable. Related Data Home Medications ?Medication ?Instructions ?Recorded ?Confirmed doxycycline hyclate 100 mg capsule 100 mg PO BID Pneumonia 10 days 12/24/24 #20 caps levothyroxine 1 tab PO DAILY 12/24/24 12/24/24 Previous Rx's ?Medication ?Instructions ?Recorded doxycycline hyclate 100 mg capsule 100 mg PO BID Pneumonia 10 days 12/24/24 #20 caps Allergies Allergy/AdvReac Type Severity Reaction Status Date / Time No Known Allergies Allergy Unverified 12/24/24 15:56 General Stated Complaint: RespSymp NIC: 3 Review of Systems All systems reviewed & are unremarkable except as noted in HPI and below Respiratory Respiratory: Reports as per HPI, Reports chest congestion and Reports cough Exam Narrative Exam Narrative: Constitutional: Alert and oriented x3. Appears stated age. Normal body habitus. Head: Normocephalic, no trauma. Eyes: Pupils PERRL, Red reflex noted, EOM's intact. Eyelids symmetrical without lesions, discharge, or swelling. ENT: Bilateral TM's WNL, External ear normal to inspection, no mastoid TTP, swelling, or erythema, Nasal turbinates WNL, no nasal discharge. Normal dentition, Posterior pharynx WNL, no exudate. Chest: RRR, Normal S1, S2, distal pulses intact. Resp: Rales auscultated in the right lower lobe. Abdomen: Soft, non-distended, Normoactive bowel sounds all 4 quads. Musculoskeletal: Normal gait, Moves all 4 extremities without difficulty. Skin: No suspicious rashes or lesions. Capillary refill less than 2 sec. Neurologic: Cranial nerves II-XII intact. Alert and oriented x 3. Motor: No deficits noted. Sensory: Intact bilaterally all 4 extremities. Hematologic/Lymphatic: No ecchymosis, no lymphadenopathy. Course Vital Signs Vital signs: Vital Signs Temperature 37.0 C 12/24/24 15:47 Pulse 107 H 12/24/24 15:47 Respiratory Rate 14 12/24/24 15:47 Blood Pressure 116/65 12/24/24 15:47 Pulse Oximetry 93 12/24/24 15:47 Temperature 37.0 C 12/24/24 15:47 Temperature Source Oral 12/24/24 15:47 Pulse 107 H 12/24/24 15:47 Respiratory Rate 14 12/24/24 15:47 Blood Pressure 116/65 12/24/24 15:47 Blood Pressure Position Sitting 12/24/24 15:47 Pulse Oximetry 93 12/24/24 15:47 Oxygen Delivery Method Room Air 12/24/24 15:47 Oxygen Flow Rate 0 12/24/24 15:47 Pain Level 2 12/24/24 15:47 Medical Decision Making 39-year-old female presents to the ER with a chief complaint of URI type symptoms for the last 3 days. Productive cough, fever up to Tmax 103 per patient report. Does have a history of asthma. Has been taking Tylenol ibuprofen. She does have some rales noted in the right lower lobe on auscultation. Chest x-ray shows right lower lobe infiltrate and mild left lower lobe infiltrate. Will treat accordingly patient does have an albuterol inhaler at home which she reports that she will use. Patient given doxycycline here in the department. Discussed x-ray results she verbalized understanding. Negative COVID flu RSV. Will give strict return instructions and follow-up care. This text was generated using [employer] system, please disregard any oddities of phrase or misspellings. Medical Records Medical records reviewed: Yes I reviewed the patient's medical records. Imaging Data Radiologic Study: Imaging: X-Ray Radiologist's impression: COMPARISON: CR,XR XR CHEST 2V PA LATERAL from 11/03/[address] ABDOMEN PELVIS WO from 11/03/2022 FINDINGS: 2 views: Heart size is normal. The mediastinum is not widened. There are mild increased markings in both lower lobes, slightly more so on the right side. There are no pleural effusions. IMPRESSION: Right lower lobe infiltrate. Possible also mild left lower lobe infiltrate. There are no pleural effusions. Lab Data Lab results reviewed: Yes I reviewed the patient's lab results. Labs: Laboratory Tests Range/Units 12/24/24 16:04 COVID-19 Source Nasopharynx SARS-CoV-2 (PCR) (Negative) Negative Influenza Type A (PCR) (Negative) Negative Influenza Type B (PCR) (Negative) Negative RSV (PCR) (Negative) Negative Quality:SDOH Health Related Social Needs: No Data to Display PFSH All Active Problems (Updated 12/24/24 @ 16:44 by Gracie Alexandre NP) Pneumonia (Acute) Internal bleeding hemorrhoids (Acute) Hematochezia (Acute) Pain, rectal (Acute) Medical History Hyperthyroidism Asthma Surgical History History of hysterectomy Social History Smoking/Tobacco Use Status: Current every day Tobacco Type: cigarettes Tobacco: How many years used: 15 Smoking risk assessment performed?: Yes Alcohol Intake: never Drug use: Daily Substance use type: marijuana Housing: apartment Do you feel safe at home: Yes Do you feel safe in your relationship?: Yes
[2024-12-24 16:46] LABS: COVID-19 PCR Negative (Negative); Influenza A PCR Negative (Negative); Influenza B PCR Negative (Negative); RSV PCR Negative (Negative)
[2024-12-24] MEDS: Doxycycline Hyclate 100 MG CAP PO (16:55)
[2024-12-24] MEDS: Doxycycline Hyclate 100 MG, 2 CAPS/BTL PO (16:55)
[2024-12-24 17:03] LABS: Source Nasopharynx
== END 2024-12-24 17:20 | disposition home or self-care (01) ==
PROVIDERS: Emergency Provider Registered Nurse Emergency; PCP Physician Assistant
DX: J18.9 Pneumonia, unspecified organism (principal); E03.9 Hypothyroidism, unspecified; J44.9 Chronic obstructive pulmonary disease, unspecified; F17.210 Nicotine dependence, cigarettes, uncomplicated
CPT/HCPCS: 87637; 99284; 71046